=== PATIENT | female | born 1970 | race Caucasian/White ===

== ENCOUNTER 2020-10-26 18:56 | Emergency (ER) | payer OTHER ==
[~2020-10-26] VITALS: Ht 160 cm; Wt 86.2 kg
[2020-10-26 19:09] VITALS: BP 139/82
--- NOTE | 2020-10-26 19:14 | NUR ---
PT TO AWAIT LOBBY
--- NOTE | 2020-10-26 20:15 | NUR ---
PT PLACED IN ROOM AND IN GOWN. PT IS AWAKE ALERTX3 C/O 2 MEDICAL COMPLAINTS. 1. DYSURIA X 2DAYS AFTER TREATMENT OF MONISTAT FOR BURNING. 2. FLU LIKE SYMPTOMS WITH FATIQUE SORETHROAT AND PRODUCTIVE COUGH WITH GREEN PHLEGM X 3 DAYS STATES SHE IS FULLY VACCINATED FOR COVID BUT HAS NOT HAD FLU SHOT. PMHX:HTN, SLEEP APNEA MEDS: LOSARTON 50 MG 1 DAY
--- NOTE | 2020-10-26 20:20 | NUR ---
PT AMBULATED TO BED #3
[2020-10-26] MEDS ORDERED: NITR100C7 PO (20:55)
[2020-10-26 21:43] VITALS: BP 132/82
--- NOTE | 2020-10-26 21:44 | NUR ---
COVID SWAB SENT TO LAB PT DISCHARGED HOME WITH AFTER CARE AND ELECTRONIC RX TO TESS. PT VERBALIZED UNDERSTANDING OF INSTRUCTIONS. AWAKE ALERTX3 AMBULATORY WITH STEADY GAIT.
== END 2020-10-26 21:44 | disposition home or self-care (01) ==
LOC: MED 18:56
DX: N39.0 Urinary tract infection, site not specified (principal); Z20.822 Contact with and (suspected) exposure to COVID-19
CPT/HCPCS: 81002; 81025; 99283; U0003